=== PATIENT | male | born 1980 | race Caucasian/White ===

== ENCOUNTER 2023-05-18 13:34 | Outpatient (CLI) | payer OTHER, SELFPAY ==
--- NOTE | 2023-05-18 14:00 | CRLHL7_ITS ---
For Patients: As a result of the Century Cures Act, medical imaging exams and procedure reports are released immediately into your electronic medical record. You may view this report before your referring provider. If you have questions, please contact your health care provider. INDICATION: Arthritis. TECHNIQUE: Three views of the right hand. FINDINGS: No bone, joint, or soft tissue abnormality in the right hand. Normal exam. Dictated by Abilio Hale MD @ 05/18/2023 3:52:36 PM (Electronically Signed)
--- NOTE | 2023-05-18 14:00 | CRLHL7_ITS ---
For Patients: As a result of the Century Cures Act, medical imaging exams and procedure reports are released immediately into your electronic medical record. You may view this report before your referring provider. If you have questions, please contact your health care provider. Indication: Coronary artery disease and shortness of breath Technique: Chest 2 views, 3 films Comparison: None Findings/Impression: Cardiovascular and mediastinum: Heart size and vasculature are normal in caliber and appearance. Mediastinum is within normal limits. Lungs and pleural spaces: Lungs are clear. No sign of infiltrate or mass. No sign of pleural effusion. No pneumothorax. Bones and soft tissues: No significant findings. Dictated by David Price MD @ 05/18/2023 3:51:12 PM (Electronically Signed)
--- NOTE | 2023-05-18 14:15 | CRLHL7_ITS ---
For Patients: As a result of the Century Cures Act, medical imaging exams and procedure reports are released immediately into your electronic medical record. You may view this report before your referring provider. If you have questions, please contact your health care provider. INDICATION: Arthritis. TECHNIQUE: Two views of the left calcaneus. FINDINGS: No calcaneal fracture or bone lesion. Plantar and Achilles heel spurs. Ankle and subtalar joints and grossly normal. Dictated by Abilio Hale MD @ 05/18/2023 3:59:54 PM (Electronically Signed)
--- NOTE | 2023-05-18 14:30 | CRLHL7_ITS ---
For Patients: As a result of the Century Cures Act, medical imaging exams and procedure reports are released immediately into your electronic medical record. You may view this report before your referring provider. If you have questions, please contact your health care provider. INDICATION: Arthritis. TECHNIQUE: Two views of the right calcaneus. FINDINGS: No calcaneal fracture or bone lesion. Plantar and Achilles heel spurs. Ankle and subtalar joints are grossly normal. Dictated by Abilio Hale MD @ 05/18/2023 3:55:42 PM (Electronically Signed)
--- NOTE | 2023-05-18 14:45 | CRLHL7_ITS ---
For Patients: As a result of the Century Cures Act, medical imaging exams and procedure reports are released immediately into your electronic medical record. You may view this report before your referring provider. If you have questions, please contact your health care provider. INDICATION: Arthritis. TECHNIQUE: Two views of the left hand. FINDINGS: No bone, joint, or soft tissue abnormality in the left hand. Normal exam. Dictated by Abilio Hale MD @ 05/18/2023 3:53:31 PM (Electronically Signed)
--- NOTE | 2023-05-18 15:00 | CRLHL7_ITS ---
For Patients: As a result of the Century Cures Act, medical imaging exams and procedure reports are released immediately into your electronic medical record. You may view this report before your referring provider. If you have questions, please contact your health care provider. INDICATION: Arthritis. TECHNIQUE: Three views of each knee. FINDINGS: Postsurgical and posttraumatic changes in the right knee. [id number] tricompartmental right knee osteoarthritis. Left knee is normal. Dictated by Abilio Hale MD @ 05/18/2023 3:49:58 PM (Electronically Signed)
== END 2023-05-18 13:35 | disposition home or self-care (01) ==
PROVIDERS: Visit Provider Chiropractor
DX: M13.80 Other specified arthritis, unspecified site (principal); I25.10 Atherosclerotic heart disease of native coronary artery without angina pectoris; M19.90 Unspecified osteoarthritis, unspecified site
CPT/HCPCS: 71046; 73120; 73562; 73650; 93306